=== PATIENT | female | born 1985 | race Two or more races ===

== ENCOUNTER 2020-02-24 13:27 | Emergency (ER) | payer OTHER, MEDICAID ==
[~2020-02-24] VITALS: Ht 165.1 cm; Wt 52.2 kg
[2020-02-24 13:33] VITALS: Ht 165.1 cm; Wt 52.2 kg
[2020-02-24 14:32] LABS: BASOPHIL % 0.2 % (0-2); PLATELET COUNT 293 x10^3mcL (130-400); RED CELL DISTRIBUTION WIDTH 12.6 % (11.5-14.5)
[2020-02-24 14:47] LABS: CALCIUM 8.6 mg/dL (8.5-10.1); CARBON DIOXIDE 30.5 mmol/L (21-32); CHLORIDE SERUM 98 mmol/L (98-107); CREATININE SERUM 0.6 mg/dL (0.6-1.0); GFR1 > 60 mL/min; GLUCOSE SERUM 87 mg/dL (74-106); POTASSIUM SERUM 3.8 mmol/L (3.5-5.1); SODIUM SERUM 133 mmol/L (136-145)
[2020-02-24 14:59] LABS: ALBUMIN 3.8 g/dL (3.4-5.0); ALKALINE PHOSPHATASE 64 U/L (46-116); ALT/SGPT 17 U/L (14-59); AST/SGOT 16 U/L (15-37); BILIRUBIN TOTAL 0.9 mg/dL (0.20-1.00); CHOLESTEROL 165 mg/dL (<200); LIPASE 124 IU/L (73-393); MAGNESIUM 2.1 mg/dL (1.8-2.4); T4(THYROXINE) 9.7 ug/dL (4.7-13.3)
[2020-02-24 15:00] LABS: HDL CHOLESTEROL 61 mg/dL (40-60)
[2020-02-24 15:32] LABS: UA SPECIFIC GRAVITY 1.015 (1.005-1.035); microscopic required? YES; urine erythrocyte TRACE (NEGATIVE)
[2020-02-24 15:40] LABS: AMPHETAMINE QUAL UR NONE DETECTED (See below)
[2020-02-24 17:06] VITALS: BP 122/80
== END 2020-02-24 17:07 | disposition home or self-care (01) ==
LOC: ED 13:27
PROVIDERS: Emergency Medicine
DX: F41.9 Anxiety disorder, unspecified (principal); R42 Dizziness and giddiness
CPT/HCPCS: J8597; Q0092